=== PATIENT | male | born 1970 | race African-American/Black ===

== ENCOUNTER 2020-09-23 17:52 | Emergency (ER) | payer OTHER, SELFPAY ==
--- NOTE | ~2020-09-23 | XR_ITS ---
EXAMINATION: XR CHEST CLINICAL INFORMATION: Trauma COMPARISON: None TECHNIQUE: 2 views of the chest were obtained. FINDINGS: No significant abnormality is noted involving the heart, lungs, mediastinum, bony thorax or soft tissues. Degenerative changes are present in the spine with some mild anterior wedging of midthoracic vertebral body. No pneumothorax or displaced rib fractures are seen. XR/XR chest 2V IMPRESSION: No acute intrathoracic disease
[2020-09-23 18:54] VITALS: BP 107/82; PULSE 82; RESP 16; TEMP 36.6; O2SAT 96; BMI 28.2
[2020-09-23 19:56] VITALS: BP 149/98; PULSE 80; RESP 18; O2SAT 97
--- NOTE | 2020-09-23 20:21 | ED_ITS ---
HPI - Fall General Chief Complaint: Abdominal Pain Stated Complaint: shortness of breath Time Seen by Provider: 09/23/20 20:14 Source: patient Mode of arrival: ambulatory Limitations: no limitations History of Present Illness HPI Narrative: Patient fell while playing basketball with kids fell on his right chest complaining of pain in the right upper ribs increases on deep breaths no other injuries Related Data Previous Rx's Medication Instructions Recorded lidocaine [Salonpas (lidocaine)] 1 patch TOPICAL DAILY PRN #10 ea 09/23/20 oxycodone 5 mg PO Q6H PRN #20 tab 09/23/20 Allergies Allergy/AdvReac Type Severity Reaction Status Date / Time lisinopril Allergy Abdominal Verified 09/23/20 19:01 Pain Review of Systems Review of Systems: Yes all other systems are reviewed and are negative [facility] Past Medical History Surgical History H/O kidney transplant Social History Social History Alcohol intake: never Patient Tobacco Use Status: Never used Tobacco Use of substances other than those prescribed or required for medical reasons: No Advance Directives: No Advance Directives Information Provided: Yes Physical Exam Vital Signs: Vital Signs: Last Vital Signs Temp 97.8 F 09/23/20 18:54 Pulse 80 09/23/20 19:56 Resp 18 09/23/20 19:56 BP 149/98 H 09/23/20 19:56 Pulse Ox 97 09/23/20 19:56 Body Mass Index 28.2 Const: General: comfortable and no acute distress Orientation/consciousness: patient oriented x3 HENMT: Head: Yes normocephalic and Yes atraumatic Eyes: General: appearance normal, both eyes and all related structures Neck: Neck: Yes normal visual inspection and Yes full ROM Chest: Chest palpation & inspection: normal inspection of the chest Chest/axillae images: 1. Tender right mid ribs with no crepitation no deformity no skin swelling no ecchymosis Resp: Effort & Inspection: normal respiratory effort Auscultation: clear to auscultation bilaterally, no crackles and no rales Cardio: Palpation: normal PMI Rate: regular rate Rhythm: regular rhythm Heart sounds: S1 normal heart sound present and S2 normal heart sound present GI: Inspection: Yes normal to inspection Palpation (GI): Soft to palpation, not firm and nontender Auscultation: normal bowel sounds Neuro: General: patient oriented x3 and no focal motor deficits MDM - Fall MDM Narrative Medical decision making narrative: Patient x-ray negative for any fracture likely rib contusion will discharge patient home on oxycodone Discharge Plan Discharge Clinical Impression: Contusion of rib on right side Qualifiers: Encounter type: initial encounter Qualified Code(s): S20.211A - Contusion of right front wall of thorax, initial encounter Patient Disposition: Home, Self-Care Instructions: Rib Contusion (ED) Additional Instructions: Apply ice rest at home take pain medication as prescribed Prescriptions: New oxycodone 5 mg tablet 5 mg PO Q6H PRN (Reason: Pain (Scale Score 7-10)) Qty: 20 RF: 0 lidocaine [Salonpas (lidocaine)] 4 % adhesive patch,medicated 1 patch topical DAILY PRN (Reason: pain) Qty: 10 RF: 0 Stand Alone Forms: Work/School Release Discharge Date/Time: 09/23/20 20:49
[2020-09-23] MEDS: Acetaminophen 325 MG TABLET 650 MG PO (20:34)
[2020-09-23] MEDS: Lidocaine 4 % Patch ADH..PATCH 1 PATCH TRANSDERMA (20:35)
== END 2020-09-23 20:49 | disposition home or self-care (01) ==
PROVIDERS: Emergency Provider Internal Medicine; PCP Internal Medicine
DX: S20.211A Contusion of right front wall of thorax, initial encounter (principal); W50.0XXA Accidental hit or strike by another person, initial encounter; Y93.67 Activity, basketball; Y92.310 Basketball court as the place of occurrence of the external cause; Y99.9 Unspecified external cause status
CPT/HCPCS: 71046; 99283; 99284